=== PATIENT | female | born 1960 | race Native Hawaiian/Other Pacific Islander ===

== ENCOUNTER → 2023-07-26 14:24 | Outpatient (CLI) | payer OTHER, SELFPAY ==
--- NOTE | 2023-07-26 14:26 | DI.RAD.S_ITS ---
PROCEDURE: XR KNEE RT 3V INDICATIONS: RIGHT KNEE PAIN TECHNIQUE: 3 views of the knee were acquired. COMPARISON: None. FINDINGS: Bones: No fractures or dislocations. Question small osteochondral lesion in the medial facet of patella. Mild tricompartmental knee joint degeneration. No suspicious bony lesions. Soft tissues: Moderate joint effusion. No suspicious soft tissue calcifications. IMPRESSION: 1. Question a osteochondral lesion in the medial facet of patella. 2. Mild tricompartmental osteoarthritis. 3. Moderate knee joint effusion. Dictated by: Brittany Kulkarni M.D. on 07/26/2023 at 14:42 Approved by: Brittany Kulkarni M.D. on 07/26/2023 at 14:43
== END ==
PROVIDERS: PCP Physician Assistant; Referring Provider Physical Medicine & Rehabilitation; Visit Provider Physical Medicine & Rehabilitation
DX: M17.11 Unilateral primary osteoarthritis, right knee (principal); M25.461 Effusion, right knee; M25.561 Pain in right knee
CPT/HCPCS: 73562